=== PATIENT | female | born 1945 ===

== ENCOUNTER 2016-07-31 08:56 | Day surgery (SDC) | payer MEDICARE ==
[~2016-07-31] VITALS: Ht 167.6 cm; Wt 74.0 kg
[~2016-07-31 08:56] MED LIST: ACETAMINOPHEN 500 MG TAB (TYLENOL) PO PRN; CHONDROITIN/HYALURONATE (DISCOVISC) 1 ML SYR IO ONE; PHENYLEPHRINE/KETOROLAC 4 ML VIAL IO ONE; SODIUM CHLORIDE FLUSH 3 ML SYR IV PRN; TETRACAINE 0.5% OPHTHALMIC SOLUTION 4 ML BTL ONE; diphenhydrAMINE 50 MG/ML INJ (BENADRYL) IV PRN
[2016-07-31 09:11] VITALS: BP 132/75
[2016-07-31] MEDS: LIDOCAINE 3.5% OPHTH GEL (AKTEN) 1 ML BTL OD SCH ×3 (09:19→09:40)
[2016-07-31] MEDS: HOME MEDICATION OD SCH ×2 (09:32→09:40)
[2016-07-31] MEDS: CATARACT PRE-OP EYE DROPS 0.5ML SYRINGE OD SCH ×2 (09:32→09:40)
[2016-07-31] MEDS ORDERED: MIDAZOLAM 2 MG/2 ML (VERSED) VIAL ONE (09:49)
[2016-07-31] MEDS ORDERED: NALBUPHINE 10 MG/ML (NUBAIN) 1 ML AMP ONE (09:49)
[2016-07-31 10:55] VITALS: BP 149/85
== END 2016-07-31 11:21 | disposition home or self-care (01) ==
LOC: ASC 08:56
PROVIDERS: ATTEND Ophthalmology
DX: H25.11 Age-related nuclear cataract, right eye (principal); I10 Essential (primary) hypertension; E78.5 Hyperlipidemia, unspecified
CPT/HCPCS: 36415; 66984; 84132; A9270; J2250; J2300; V2632